=== PATIENT | female | born 1940 | race Caucasian/White ===

== ENCOUNTER → 2017-11-07 | Outpatient (CLI) | payer OTHER, BC ==
[~2017-11-07] MED LIST: AQUASOL-A,10000 UNIT PO; ASCORBIC ACID500 M3 PO; AVALIDE 300/1 TABLET PO; Ascorbic Acid,Ester- PO; BACTRIM,SEPT1 TABLET PO; BETAPACE,SORIN120 M1 PO; Betapace,Sorine PO; CELEBREX200 MG PO; COUMADIN,JANTOVE2 MG PO; COUMADIN,JANTOVE4 MG PO; Flexeril PO; HYDROCODONE/AP1 EAC1 PO; KLOR-CON 88 ME1 PO; Levothroid,Synthroid PO; MICRO-K8 ME1 PO; Micardis HCT 80 mg/1 PO; NEURONTIN300 MG PO; NEXIUM40 MG PO; NORVASC10 MG PO; Neurontin PO; ORAZINC220 MG PO; PERCOCET 5/31 TABLET PO; PRAVACHOL80 MG PO; Pravachol PO; Prilosec PO; SALINE SPRAY NS; SUPPORT-5001 EACH PO; THERAGRAN1 TABLET PO; TOPROL XL100 MG PO; Vicodin,Lortab 5/500 PO; XARELTO15 MG PO; Xarelto PO; Zinc Sulfate PO
== END | disposition home or self-care (01) ==
DX: M17.11 Unilateral primary osteoarthritis, right knee (principal); R26.2 Difficulty in walking, not elsewhere classified; M25.561 Pain in right knee; M25.661 Stiffness of right knee, not elsewhere classified; M62.81 Muscle weakness (generalized); Z74.1 Need for assistance with personal care
CPT/HCPCS: 97150 GO; 97161 GP; 97165 GO; 97530 GP; G8978 GP; G8979 GP; G8980 GP; G8987 GO; G8988 GO; G8989 GO

== ENCOUNTER 2017-12-03 22:03 | Inpatient (IN) | payer OTHER, BC ==
[~2017-12-03] VITALS: Ht 142.2 cm; Wt 104.0 kg
[~2017-12-03 22:03] MED LIST changes: +APRESOLINE10 MG PO; +BETA CAROT25000 UNIT PO; +CYMBALTA60 MG PO; +HYZAAR 100-11 TABLET PO; +NEURONTIN600 MG PO; +NEXIUM 24HR20 M2 PO; +SOTALOL120 MG PO; +SUPER B COMPL400 MCG PO; +SYNTHROID100 MCG PO; +ZINC SULFATE220 MG PO
[2017-12-04 05:58] VITALS: BP 158/76
[2017-12-04 10:20] LABS: HEMATOCRIT 39.4 % (36.0-46.0); HEMOGLOBIN 12.7 G/DL (11.9-15.5); MCH 30.6 PG (29.0-34.0); MCHC 32.2 G/DL (30.0-36.0); MCV 94.9 FL (83-99); PLATELET COUNT 160 K/uL (156-360); RBC DIS.WIDTH-CV 11.9 % (11.8-14.6); RBC DIS.WIDTH-SD 41.5 % (39-53); RED BLOOD COUNT 4.15 M/uL (3.80-5.20); WHITE BLOOD COUNT 5.8 K/uL (4.1-10.2)
[2017-12-04 11:00] VITALS: BP 93/52
[2017-12-04 12:30] VITALS: BP 128/65
[2017-12-04 16:05] VITALS: BP 132/63
[2017-12-04 20:34] VITALS: BP 116/55
[2017-12-04 23:53] VITALS: BP 115/55
[2017-12-05 03:21] VITALS: BP 132/63
[2017-12-05 06:08] LABS: HEMATOCRIT 35.7 % (36.0-46.0); HEMOGLOBIN 12.2 G/DL (11.9-15.5); MCV 92.7 FL (83-99)
[2017-12-05 06:33] LABS: CHLORIDE 98 MEQ/L (99-109); CREATININE 0.9 MG/DL (0.6-1.3); GFR ESTIMATE (CALCULATED) > 59 mL/min/; GLUCOSE 162 mg/dL (70-99); POTASSIUM 3.8 MEQ/L (3.7-5.4); SODIUM 135 MEQ/L (136-147); UREA NITROGEN (BUN) 16 mg/dL (9-23)
[2017-12-05 06:40] LABS: INTER. NORMALIZED RATIO 1.1
[2017-12-05 07:48] VITALS: BP 140/66
[2017-12-05 11:40] VITALS: BP 161/68
[2017-12-05 16:06] VITALS: BP 112/57
[2017-12-06 00:44] VITALS: BP 112/55
[2017-12-06 05:43] LABS: HEMATOCRIT 33.1 % (36.0-46.0); HEMOGLOBIN 11.3 G/DL (11.9-15.5)
[2017-12-06 06:13] LABS: INTER. NORMALIZED RATIO 1.3
[2017-12-06] MEDS ORDERED: COUMADIN1 MG PO (08:10)
[2017-12-06] MEDS ORDERED: ENDOCET 5-3251 EACH PO (08:12)
[2017-12-06 08:16] VITALS: BP 138/65
[2017-12-06 15:01] VITALS: BP 108/53
== END 2017-12-06 16:09 | disposition home or self-care (01) | DRG 470 ==
LOC: ENRESERV 22:03 → 2SOUTH 12-04 05:22 → ENRESERV 12-04 09:58 → 3EAST 12-04 10:38 → 2SOUTH 12-04 13:23 → 3EAST 12-06 16:09
PROVIDERS: Orthopaedic Surgery
PROC: 0SRC0J9 Replacement of Right Knee Joint with Synthetic Substitute, Cemented, Open Approach (ICD-10-PCS; principal; 2017-12-04)
DX: M17.11 Unilateral primary osteoarthritis, right knee (principal); K21.9 Gastro-esophageal reflux disease without esophagitis; I10 Essential (primary) hypertension; E03.9 Hypothyroidism, unspecified; E78.00 Pure hypercholesterolemia, unspecified; I48.91 Unspecified atrial fibrillation; G89.29 Other chronic pain; M54.9 Dorsalgia, unspecified; Z79.01 Long term (current) use of anticoagulants; Z98.1 Arthrodesis status; Z91.041 Radiographic dye allergy status
CPT/HCPCS: 73560; 80048; 85014; 85018; 85027; 85610; C1713; J0690; J1100; J1170; J2250; J2405; J2795; J7030; J7050

== ENCOUNTER 2018-01-13 11:53 | Emergency (ER) | payer OTHER, BC ==
[~2018-01-13] VITALS: Ht 157.5 cm; Wt 95.6 kg
[~2018-01-13 11:53] MED LIST changes: +COUMADIN1 MG PO; +ENDOCET 5-3251 EACH PO
[2018-01-13 13:49] LABS: HEMATOCRIT 37.4 % (36.0-46.0); HEMOGLOBIN 12.6 G/DL (11.9-15.5); MCH 31.6 PG (29.0-34.0); MCHC 33.7 G/DL (30.0-36.0); MCV 93.7 FL (83-99); PLATELET COUNT 169 K/uL (156-360); RBC DIS.WIDTH-CV 12.1 % (11.8-14.6); RBC DIS.WIDTH-SD 42.3 % (39-53); RED BLOOD COUNT 3.99 M/uL (3.80-5.20); WHITE BLOOD COUNT 7.2 K/uL (4.1-10.2)
[2018-01-13 13:57] LABS: PTT 53.9 SEC (25-37)
[2018-01-13 14:00] LABS: CHLORIDE 101 mEq/L (99-109); POTASSIUM 3.7 mEq/L (3.7-5.4); SODIUM 136 mEq/L (136-147)
[2018-01-13 14:02] LABS: GLUCOSE 117 mg/dL (70-99)
[2018-01-13 14:06] LABS: GFR ESTIMATE (CALCULATED) 57 mL/min/
[2018-01-13 14:07] LABS: UREA NITROGEN (BUN) 22 mg/dL (9-23)
[2018-01-13 14:25] LABS: INTER. NORMALIZED RATIO 4.5
[2018-01-13 16:49] VITALS: BP 137/71
== END 2018-01-13 16:50 | disposition home or self-care (01) ==
LOC: EME 11:53
PROVIDERS: Emergency Medicine Emergency Medical Services
DX: S80.01XA Contusion of right knee, initial encounter (principal); M71.21 Synovial cyst of popliteal space [Baker], right knee; X58.XXXA Exposure to other specified factors, initial encounter; T45.511A Poisoning by anticoagulants, accidental (unintentional), initial encounter; Z79.01 Long term (current) use of anticoagulants; J45.909 Unspecified asthma, uncomplicated; Z96.651 Presence of right artificial knee joint; Z90.49 Acquired absence of other specified parts of digestive tract
CPT/HCPCS: 80048; 85027; 85610; 85730; 93971; 99281; 99285